=== PATIENT | female | born 1945 | race Hispanic/Latino ===

== ENCOUNTER 2017-09-24 22:29 | Emergency (ER) | payer MEDICARE ==
--- NOTE | 2017-09-25 07:44 | ULT ---
LEFT LOWER EXTREMITY VENOUS DOPPLER: HISTORY: Pain, swelling, and edema. COMPARISON: None. TECHNIQUE: Real-time, osorio scale, color flow, and spectral analysis of the left lower extremity venous system wa s performed. Common femoral, femoral, proximal portion of greater saphenous, and deep femoral veins as well as the popliteal and posterior tibial veins are interrogated. FINDINGS: Normal flow, augmentation, and compression. Low-grade subcutaneous soft tissue edema. IMPRESSION: No deep venous thrombosis. POS: GAB[facility]ELL[facility]
== END 2017-09-25 00:23 | disposition home or self-care (01) ==
LOC: SCSER 22:29
DX: M25.472 Effusion, left ankle (principal); M79.89 Other specified soft tissue disorders; I10 Essential (primary) hypertension